=== PATIENT | female | born 1995 | race African-American/Black ===

== ENCOUNTER 2017-12-03 15:05 | Emergency (ER) | payer OTHER, MEDICAID ==
[2017-12-03 16:21] LABS: CONTROL LINE UCG INT CTR LINE PRESENT; URINE PREG TEST NEGATIVE (NEGATIVE)
[2017-12-03 16:24] LABS: KETONE, URINE AUTO RFX NEGATIVE (NEGATIVE); MUCUS, URINE RFX SMALL (NEGATIVE); NITRITE, URINE AUTO RFX NEGATIVE (NEGATIVE); RBC, URINE AUTO RFX 3 /HPF (0-3); SPECIFIC GRAVITY UR AUTO RFX 1.011 (1.002-1.035); SQUAM EPITHELIAL CELL UR AURFX 0 /HPF (0-6)
[2017-12-03 16:27] LABS: LEUKOCYTE ESTERASE UR AUTO RFX 3+ (NEGATIVE); WBC, URINE AUTO RFX 94 /HPF (0-3)
== END 2017-12-03 16:53 | disposition home or self-care (01) ==
LOC: M ED 15:05
DX: N39.0 Urinary tract infection, site not specified (principal)
CPT/HCPCS: 84703

== ENCOUNTER 2018-03-04 08:03 | Emergency (ER) | payer OTHER, MEDICAID ==
[2018-03-04 09:56] LABS: KETONE, URINE AUTO RFX NEGATIVE (NEGATIVE); LEUKOCYTE ESTERASE UR AUTO RFX NEGATIVE (NEGATIVE); MUCUS, URINE RFX SMALL (NEGATIVE); NITRITE, URINE AUTO RFX NEGATIVE (NEGATIVE); RBC, URINE AUTO RFX 2 /HPF (0-3); SPECIFIC GRAVITY UR AUTO RFX 1.012 (1.002-1.035); SQUAM EPITHELIAL CELL UR AURFX 0 /HPF (0-6); WBC, URINE AUTO RFX 1 /HPF (0-3)
[2018-03-04 11:34] LABS: CHLAMYDIA DNA AMPLIFICATION NEGATIVE (NEGATIVE); GC DNA AMPLIFICATION NEGATIVE (NEGATIVE)
== END 2018-03-04 11:02 | disposition home or self-care (01) ==
LOC: M ED 08:03
DX: R10.2 Pelvic and perineal pain (principal); N89.8 Other specified noninflammatory disorders of vagina; Z97.5 Presence of (intrauterine) contraceptive device
CPT/HCPCS: 76856

== ENCOUNTER → 2018-07-09 | Outpatient (CLI) | payer OTHER, MEDICAID ==
[~2018-07-09] MED LIST: CIPR-249 PO
[2018-07-09 15:05] LABS: BASO % 0.5 % (0.0-1.0); EOS # 0.1 10^3/uL (0.0-0.50); EOS % 1.7 % (0.0-3.0); HEMATOCRIT 38.5 % (36.0-47.0); HEMOGLOBIN 13.6 g/dl (12.0-15.5); LYMPH # 2.5 10^3/uL (1.5-6.5); LYMPH % 38.9 % (24.0-44.0); MEAN CORPUSCULAR HEMOGLOBIN 31.4 pg (27.0-33.0); MEAN CORPUSCULAR HGB CONC 35.3 g/dl (32.0-36.5); MEAN CORPUSCULAR VOLUME 88.9 fl (80.0-96.0); MONO # 0.6 10^3/uL (0.0-0.8); MONO % 8.8 % (0.0-5.0); NEUTROPHILS # 3.2 10^3/uL (1.8-7.7); NEUTROPHILS % 49.9 % (36.0-66.0); PLATELET COUNT, AUTOMATED 222 10^3/uL (150-450); RED BLOOD COUNT 4.33 10^6/uL (4.00-5.40); WHITE BLOOD COUNT 6.4 10^3/uL (4.0-10.0)
[2018-07-09 15:08] LABS: APPEARANCE, URINE CLEAR (CLEAR); BACTERIA, URINE AUTO NEGATIVE (NEGATIVE); BILIRUBIN, URINE AUTO NEGATIVE (NEGATIVE); BLOOD, URINE BLOOD NEGATIVE (NEGATIVE); COLOR, URINE STRAW (YELLOW); GLUCOSE, URINE (UA) AUTO NEGATIVE (NEGATIVE); KETONE, URINE AUTO NEGATIVE (NEGATIVE); LEUKOCYTE ESTERASE, URINE AUTO NEGATIVE (NEGATIVE); NITRITE, URINE AUTO NEGATIVE (NEGATIVE); PROTEIN, URINE AUTO NEGATIVE (NEGATIVE); RBC, URINE AUTO 1 /HPF (0-3); SPECIFIC GRAVITY URINE AUTO 1.011 (1.002-1.035); SQUAMOUS EPITHELIAL CELL UR AU 1 /HPF (0-6); UROBILINOGEN, URINE AUTO 0.2 mg/dL (0.0-2.0); WBC, URINE AUTO 2 /HPF (0-3)
[2018-07-09 15:23] LABS: INR 0.97
[2018-07-09 15:24] LABS: PARTIAL THROMBOPLASTIN TIME 27.2 SECONDS (25.4-37.6)
[2018-07-09 15:41] LABS: ALBUMIN 3.6 GM/DL (3.2-5.2); ALT/SGPT 19 U/L (12-78); BILIRUBIN,TOTAL 0.5 MG/DL (0.2-1.0); BLOOD UREA NITROGEN 9 MG/DL (7-18); CALCIUM LEVEL 8.9 MG/DL (8.5-10.1); CARBON DIOXIDE LEVEL 25 MEQ/L (21-32); CHLORIDE LEVEL 109 MEQ/L (98-107); CREATININE FOR GFR 0.59 MG/DL (0.55-1.30); GLOMERULAR FILTRATION RATE > 60.0 (>60); GLUCOSE, FASTING 92 MG/DL (70-100); POTASSIUM SERUM 4.1 MEQ/L (3.5-5.1); SODIUM LEVEL 141 MEQ/L (136-145)
[2018-07-10 10:06] LABS: HIV 1&2 SCREEN CENTAUR NEGATIVE (NEGATIVE)
== END ==
LOC: M LAB 09:45
DX: Z01.812 Encounter for preprocedural laboratory examination (principal)

== ENCOUNTER → 2018-07-09 | Outpatient (REF) | payer OTHER, MEDICAID ==
[2018-07-09 16:05] LABS: HEMATOCRIT 37.8 % (36.0-47.0); HEMOGLOBIN 13.4 g/dl (12.0-15.5); MEAN CORPUSCULAR HEMOGLOBIN 30.8 pg (27.0-33.0); MEAN CORPUSCULAR HGB CONC 35.4 g/dl (32.0-36.5); MEAN CORPUSCULAR VOLUME 86.9 fl (80.0-96.0); PLATELET COUNT, AUTOMATED 229 10^3/uL (150-450); RED BLOOD COUNT 4.35 10^6/uL (4.00-5.40); WHITE BLOOD COUNT 6.9 10^3/uL (4.0-10.0)
[2018-07-09 16:45] LABS: ALBUMIN 3.6 GM/DL (3.2-5.2); ALT/SGPT 20 U/L (12-78); BILIRUBIN,TOTAL 0.4 MG/DL (0.2-1.0); BLOOD UREA NITROGEN 10 MG/DL (7-18); CALCIUM LEVEL 8.8 MG/DL (8.5-10.1); CARBON DIOXIDE LEVEL 26 MEQ/L (21-32); CHLORIDE LEVEL 108 MEQ/L (98-107); CREATININE FOR GFR 0.64 MG/DL (0.55-1.30); FREE T4 1.08 NG/DL (0.76-1.46); GLOMERULAR FILTRATION RATE > 60.0 (>60); GLUCOSE, FASTING 75 MG/DL (70-100); POTASSIUM SERUM 4.2 MEQ/L (3.5-5.1); SODIUM LEVEL 141 MEQ/L (136-145); THYROID STIMULATING HORMONE 0.763 uIU/ML (0.358-3.740)
[2018-07-10 10:07] LABS: HEPATITIS C VIRUS ABY INDEX < 0.0 INDEX (<0.8)
[2018-07-10 10:08] LABS: HIV 1&2 SCREEN CENTAUR NEGATIVE (NEGATIVE)
== END ==
LOC: M SFHCPLAZ 13:53
PROVIDERS: ATTEND Physician Assistant
DX: Z00.00 Encounter for general adult medical examination without abnormal findings (principal); Z11.59 Encounter for screening for other viral diseases; Z11.4 Encounter for screening for human immunodeficiency virus [HIV]

== ENCOUNTER 2018-12-14 22:08 | Emergency (ER) | payer MEDICAID, OTHER ==
[~2018-12-14] VITALS: Ht 170.2 cm; Wt 90.9 kg
[2018-12-14 22:08] VITALS: BP 125/65
== END 2018-12-15 00:55 | disposition left against medical advice (07) ==
LOC: M ED 22:08
DX: R10.2 Pelvic and perineal pain (principal); N89.8 Other specified noninflammatory disorders of vagina; Z53.21 Procedure and treatment not carried out due to patient leaving prior to being seen by health care provider

== ENCOUNTER 2019-01-25 10:03 | Emergency (ER) | payer OTHER ==
[~2019-01-25] VITALS: Ht 172.7 cm; Wt 97.7 kg
[2019-01-25 11:43] LABS: BASO % 0.3 % (0.0-1.0); EOS # 0.1 10^3/uL (0.0-0.5); EOS % 1.1 % (0.0-3.0); HEMATOCRIT 40.7 % (36.0-47.0); HEMOGLOBIN 13.9 g/dl (12.0-15.5); LYMPH # 1.5 10^3/uL (1.5-5.0); LYMPH % 23.8 % (24.0-44.0); MEAN CORPUSCULAR HEMOGLOBIN 31.1 pg (27.0-33.0); MEAN CORPUSCULAR HGB CONC 34.2 g/dl (32.0-36.5); MEAN CORPUSCULAR VOLUME 91.1 fl (80.0-96.0); MONO # 0.5 10^3/uL (0.0-0.8); MONO % 7.8 % (0.0-5.0); NEUTROPHILS # 4.2 10^3/uL (1.5-8.5); NEUTROPHILS % 66.8 % (36.0-66.0); PLATELET COUNT, AUTOMATED 247 10^3/uL (150-450); RED BLOOD COUNT 4.47 10^6/uL (4.00-5.40); WHITE BLOOD COUNT 6.3 10^3/uL (4.0-10.0)
[2019-01-25 12:14] LABS: BLOOD UREA NITROGEN 13 MG/DL (7-18); CALCIUM LEVEL 8.9 MG/DL (8.5-10.1); CARBON DIOXIDE LEVEL 30 MEQ/L (21-32); CHLORIDE LEVEL 105 MEQ/L (98-107); CREATININE FOR GFR 0.66 MG/DL (0.55-1.30); GLOMERULAR FILTRATION RATE > 60.0 (>60); GLUCOSE, FASTING 77 MG/DL (70-100); POTASSIUM SERUM 4.5 MEQ/L (3.5-5.1); SODIUM LEVEL 141 MEQ/L (136-145)
--- NOTE | 2019-01-25 13:13 | REP ---
PELVIC ULTRASOUND: Real-time sonographic evaluation of the pelvis performed utilizing transabdominal and endovaginal technique. Urinary bladder is collapsed. Uterus measures 7.1 x 4.5 x 5.0 cm. Endometrial thickness is 11 mm. IUD is in place within the endometrial canal. In the fundal portion of the endometrium soft tissue structure measures 9 x 9 x 18 mm representing either blood clot or polyp. Ovaries are normal in size and echotexture, right ovary measuring 2.7 x 1.9 x 2.2 cm and left ovary 3.4 x 1.8 x 2.3 cm. There is no adnexal mass. There is no torsion, RI right ovary 0.53 and left ovary 0.55. IMPRESSION: IUD in place in the endometrial canal. Solid appearing structure in the fundal endometrium measures 9 x 9 x 18 mm representing either blood clot or polyp. Electronically Signed by Serg Franco MD 01/25/2019 04:19 P
[2019-01-25 13:21] LABS: CHLAMYDIA DNA AMPLIFICATION NEGATIVE (NEGATIVE); GC DNA AMPLIFICATION NEGATIVE (NEGATIVE)
[2019-01-25] MEDS ORDERED: FLAG500T PO (13:34)
[2019-01-25 13:41] VITALS: BP 119/75
== END 2019-01-25 13:49 | disposition home or self-care (01) ==
LOC: M ED 10:03
DX: N76.0 Acute vaginitis (principal); Z97.5 Presence of (intrauterine) contraceptive device

== ENCOUNTER 2019-02-27 07:51 | Emergency (ER) | payer OTHER, MEDICAID ==
[~2019-02-27] VITALS: Ht 172.7 cm; Wt 100.7 kg
[~2019-02-27 07:51] MED LIST changes: +FLAG500T PO
[2019-02-27] MEDS ORDERED: KETOROLAC 60 MG/2 ML VIAL (J1885) IM ONE (08:15)
[2019-02-27] MEDS ORDERED: ACETAMINOPHEN 325 MG TAB PO ONE (08:15)
[2019-02-27] MEDS ORDERED: KETO10TAB PO (09:25)
[2019-02-27] MEDS ORDERED: GABA-1171 PO (09:25)
[2019-02-27] MEDS ORDERED: PENI500T PO (09:28)
[2019-02-27 09:33] VITALS: BP 143/77
== END 2019-02-27 09:45 | disposition home or self-care (01) ==
LOC: M ED 07:51
DX: K02.9 Dental caries, unspecified (principal)
CPT/HCPCS: 99283; J1885

== ENCOUNTER 2019-05-13 13:32 | Emergency (ER) | payer OTHER, MEDICAID ==
[~2019-05-13] VITALS: Ht 172.7 cm; Wt 102.9 kg
[~2019-05-13 13:32] MED LIST changes: +GABA-1171 PO; +KETO10TAB PO; +PENI500T PO
[2019-05-13 15:01] LABS: BASO % 0.2 % (0.0-1.0); EOS % 0.9 % (0.0-3.0); HEMATOCRIT 43.8 % (36.0-47.0); HEMOGLOBIN 14.5 g/dl (12.0-15.5); LYMPH # 1.7 10^3/uL (1.5-5.0); LYMPH % 38.6 % (24.0-44.0); MEAN CORPUSCULAR HEMOGLOBIN 30.3 pg (27.0-33.0); MEAN CORPUSCULAR HGB CONC 33.1 g/dl (32.0-36.5); MEAN CORPUSCULAR VOLUME 91.4 fl (80.0-96.0); MONO # 0.5 10^3/uL (0.0-0.8); MONO % 10.5 % (0.0-5.0); NEUTROPHILS # 2.1 10^3/uL (1.5-8.5); NEUTROPHILS % 49.6 % (36.0-66.0); PLATELET COUNT, AUTOMATED 235 10^3/uL (150-450); RED BLOOD COUNT 4.79 10^6/uL (4.00-5.40); WHITE BLOOD COUNT 4.3 10^3/uL (4.0-10.0)
[2019-05-13 15:24] LABS: ALBUMIN 3.5 GM/DL (3.2-5.2); ALT/SGPT 14 U/L (12-78); BILIRUBIN,DIRECT 0.1 MG/DL (0.0-0.2); BILIRUBIN,TOTAL 0.3 MG/DL (0.2-1.0); BLOOD UREA NITROGEN 11 MG/DL (7-18); CARBON DIOXIDE LEVEL 27 MEQ/L (21-32); CHLORIDE LEVEL 108 MEQ/L (98-107); CREATININE FOR GFR 0.75 MG/DL (0.55-1.30); GLOMERULAR FILTRATION RATE > 60.0 (>60); GLUCOSE, FASTING 88 MG/DL (70-100); LIPASE 74 U/L (73-393); SODIUM LEVEL 140 MEQ/L (136-145); TOTAL PROTEIN 7.5 GM/DL (6.4-8.2)
[2019-05-13 15:30] LABS: HCG, SERUM QUALITATIVE NEGATIVE (NEGATIVE)
[2019-05-13] MEDS ORDERED: ONDANSETRON 4 MG ORAL DISINTEGRATING TAB (Q0162 PER 1MG) PO ONE (17:15)
[2019-05-13] MEDS ORDERED: COLA100C5 PO (18:51)
[2019-05-13] MEDS ORDERED: NAPR-837 PO (18:51)
[2019-05-13 19:00] VITALS: BP 113/70
--- NOTE | 2019-05-13 19:19 | REPVR ---
PROCEDURE INFORMATION: Exam: US Pelvis Complete, Transabdominal Exam date and time: 05/13/2019 6:18 PM Age: 24 years old Clinical indication: Pelvic pain; Additional info: Right sided abd pain TECHNIQUE: Imaging protocol: Real-time transabdominal pelvic ultrasound with image documentation. Complete exam. COMPARISON: US PELVIC NON-OB COMPLETE 01/25/2019 11:58 AM FINDINGS: Uterus/cervix: The uterus is retroverted and measures 6.3 cm in length by 4.6 cm in AP dimension by 4.6 cm transverse dimension. There is an IUD within the central portion of the endometrial cavity. There is a small amount of fluid within the endometrial cavity surrounding the IUD. Right adnexa: The right ovary measures 3.2 cm in length by 2 cm in thickness. There are follicular cysts of the right ovary. There is vascular flow of the right ovary with no evidence of torsion. Left adnexa: The left ovary measures 2.7 cm in length by 1.8 cm in thickness and there are small follicular cysts identified. There is vascular flow with no evidence of torsion. Free fluid: There is a small amount of free fluid in the pelvis. Bladder: Normal appearing urinary bladder IMPRESSION: 1. Retroverted uterus with an IUD in the endometrial cavity along with a small amount of endometrial fluid. 2. Small follicular cysts along the periphery of the ovaries could be mild polycystic ovary. Electronically signed by: Fernandez Wesley On 05/13/2019 19:18:42 PM
--- NOTE | 2019-05-13 19:27 | REPVR ---
PROCEDURE INFORMATION: Exam: US Abdomen Limited, Right Upper Quadrant Exam date and time: 05/13/2019 6:18 PM Age: 24 years old Clinical indication: Abdominal pain; Generalized; Additional info: Right sided abd pain TECHNIQUE: Imaging protocol: Real-time ultrasound of the abdomen with image documentation. Examination was focused on the right upper quadrant. COMPARISON: No relevant prior studies available. FINDINGS: Liver: Normal appearing liver. Gallbladder: The gallbladder is fluid filled and there is no evidence of gallstones. There is a fold in the neck of the gallbladder. There is no evidence of gallstones. Common bile duct: Common bile duct is normal in size measuring 3 mm. Pancreas: Normal appearing pancreas. Right kidney: The right kidney measures 12.6 cm in length by 4 cm in thickness and there is no hydronephrosis. Aorta: Normal appearing aorta. Inferior vena cava: Normal appearing inferior vena cava. IMPRESSION: No evidence of gallstones and no evidence of biliary dilatation. Electronically signed by: Fernandez Wesley On 05/13/2019 19:27:15 PM
== END 2019-05-13 19:02 | disposition home or self-care (01) ==
LOC: M ED 13:32
DX: R10.9 Unspecified abdominal pain (principal); Z97.5 Presence of (intrauterine) contraceptive device

== ENCOUNTER 2019-07-22 10:29 | Emergency (ER) | payer OTHER, MEDICAID ==
[~2019-07-22] VITALS: Ht 172.7 cm; Wt 101.9 kg
[~2019-07-22 10:29] MED LIST changes: +COLA100C5 PO; +NAPR-837 PO
[2019-07-22 11:59] LABS: INFLUENZA A AMPLIFICATION NEGATIVE (NEGATIVE); INFLUENZA B AMPLIFICATION NEGATIVE (NEGATIVE)
[2019-07-22] MEDS ORDERED: AFRI0.058 (12:41)
[2019-07-22] MEDS ORDERED: BENZ200C70 PO (12:41)
[2019-07-22 12:59] VITALS: BP 134/63
== END 2019-07-22 13:02 | disposition home or self-care (01) ==
LOC: M ED 10:29
DX: J06.9 Acute upper respiratory infection, unspecified (principal); R05 Cough

== ENCOUNTER 2019-09-06 10:08 | Inpatient (IN) | payer OTHER ==
[~2019-09-06] VITALS: Ht 172.7 cm; Wt 101.9 kg
[~2019-09-06 10:08] MED LIST changes: +AFRI0.058; +BENZ200C70 PO
[2019-09-06] MEDS ORDERED: MELA2.5C3 PO (10:33)
[2019-09-06 11:03] LABS: HEMATOCRIT 40.1 % (36.0-47.0); HEMOGLOBIN 13.8 g/dl (12.0-15.5); MEAN CORPUSCULAR HEMOGLOBIN 30.7 pg (27.0-33.0); MEAN CORPUSCULAR HGB CONC 34.4 g/dl (32.0-36.5); MEAN CORPUSCULAR VOLUME 89.1 fl (80.0-96.0); PLATELET COUNT, AUTOMATED 227 10^3/uL (150-450); WHITE BLOOD COUNT 5.1 10^3/uL (4.0-10.0)
[2019-09-06 11:29] LABS: AMPHETAMINES LEVEL URINE NEGATIVE (NEGATIVE); BARBITURATES URINE NEGATIVE (NEGATIVE); BENZODIAZEPINES URINE NEGATIVE (NEGATIVE); CANNABINOIDS URINE POSITIVE (NEGATIVE); COCAINE METABOLITE URINE NEGATIVE (NEGATIVE); METHADONE URINE NEGATIVE (NEGATIVE); OPIATES URINE NEGATIVE (NEGATIVE); PHENCYCLIDINE URINE NEGATIVE (NEGATIVE)
[2019-09-06 11:49] LABS: HCG, SERUM QUALITATIVE NEGATIVE (NEGATIVE)
[2019-09-06 11:57] LABS: ACETAMINOPHEN LEVEL < 2.0 UG/ML (10.0-30.0); ALBUMIN 3.5 GM/DL (3.2-5.2); ALT/SGPT 15 U/L (12-78); BILIRUBIN,DIRECT 0.1 MG/DL (0.0-0.2); BILIRUBIN,TOTAL 0.5 MG/DL (0.2-1.0); BLOOD UREA NITROGEN 11 MG/DL (7-18); CALCIUM LEVEL 8.9 MG/DL (8.5-10.1); CARBON DIOXIDE LEVEL 28 MEQ/L (21-32); CHLORIDE LEVEL 106 MEQ/L (98-107); CREATININE FOR GFR 0.78 MG/DL (0.55-1.30); ETHYL ALCOHOL (ETHANOL) < 0.003 % (0.000-0.010); GLOMERULAR FILTRATION RATE > 60.0 (>60); GLUCOSE, FASTING 97 MG/DL (70-100); POTASSIUM SERUM 4.3 MEQ/L (3.5-5.1); SALICYLATE LEVEL 2.5 MG/DL (5.0-30.0); SODIUM LEVEL 139 MEQ/L (136-145); THYROID STIMULATING HORMONE 0.474 uIU/ML (0.358-3.740); TOTAL PROTEIN 7.1 GM/DL (6.4-8.2)
[2019-09-06] MEDS ORDERED: NEXP1IMP SC (12:43)
[2019-09-06] MEDS ORDERED: MAALOX 30 ML SUSP *UDC PO PRN (15:15)
[2019-09-06] MEDS ORDERED: traZODone 50 MG TAB PO PRN (15:15)
[2019-09-06] MEDS ORDERED: MOM 30ML SUSPENSION UDC PO PRN (15:15)
[2019-09-06 16:51] VITALS: BP 123/62
[2019-09-07 06:03] VITALS: BP 122/71
--- NOTE | 2019-09-07 09:43 | MHHPEPDOC ---
[facility] History & Physical History and Physical DATE OF ADMISSION: Sep 06, 2019 at 15:13 LEGAL STATUS AT ADMISSION: . CHIEF COMPLAINT: . HISTORY OF PRESENT ILLNESS: Patient is a 24-year-old female, who PSYCHIATRIC REVIEW OF SYSTEMS: Affective: . Anxiety: . Trauma: . Psychosis: . Personality: . PAST PSYCHIATRIC HISTORY: Prior Psychiatric Disorder: . Outpatient Treatment: . Suicidal/Self injurious: [Denies]. Psychotropic Medication History: . ALLERGIES: Please see below. FAMILY PSYCHIATRIC HISTORY: [Denies]. SOCIAL HISTORY: Early Relations/development: . Sibling order: . Paternal relationships: . Education: . Occupational: . Legal: . Marital: . Economic: . Supports: . Abuse/trauma: . SUBSTANCE ABUSE HISTORY: . PAST MEDICAL/SURGICAL HISTORY: [None]. VITAL SIGNS: Please see below. MENTAL STATUS EXAMINATION: General appearance: Patient is a -year old female, who is . Speech: . Thought processes: . Thought content: . Abstract reasoning and computation: . Description of associations: . Description of abnormal or psychotic thoughts: . Judgment: . Insight: . Orientation: . Recent and remote memory: . Attention span and concentration: . Fund of knowledge: . Mood: "." Affect: . DIAGNOSES: 1. . 2. . 3. . ASSESSMENT: PROBLEM LIST: 1. . 2. . 3. . INITIAL TREATMENT PLAN: 1. Patient was admitted on a . 2. Complete history was obtained. 3. With patients permission, family will be contacted and database will be expanded. 4. Patients medication regimen will be reviewed and changed accordingly. 5. Patient will be provided with protected environment. 6. Patient will be treated with individual, group, and milieu therapies. 7. Patient will receive supportive psych-education. 8. Discharge planning will commence immediately. 9. Outpatient follow-up treatment will be strongly recommended. 10. The initial treatment plan will focus initially on: * Depression. * Risk for suicide. * Substance abuse. ESTIMATED LENGTH OF STAY: - DAYS. TIME SPENT COUNSELING AND COORDINATING INITIAL CARE: minutes. Vital Signs Vital Signs Date Time Temp Pulse Resp B/P (MAP) Pulse Ox O2 Delivery O2 Flow Rate FiO2 09/07/19 06:03 99.3 64 16 122/71 (88) 09/06/19 16:51 99 Room Air Laboratory Data 24H Labs Laboratory Tests 2 09/06/19 10:49: Nucleated Red Blood Cells % (auto) 0.0, Anion Gap 5L, Glomerular Filtration Rate > 60.0, Calcium Level 8.9, Total Bilirubin 0.5, Direct Bilirubin 0.1, Aspartate Amino Transf (AST/SGOT) 12, Alanine Aminotransferase (ALT/SGPT) 15, Alkaline Phosphatase 64, Total Protein 7.1, Albumin 3.5, Albumin/Globulin Ratio 0.97L, Thyroid Stimulating Hormone (TSH) 0.474, Human Chorionic Gonadotropin, Qual NEGATIVE, Salicylates Level 2.5L, Acetaminophen Level < 2.0L, Ethyl Alcohol Level < 0.003 09/06/19 10:51: Urine Opiates Screen NEGATIVE, Urine Methadone Screen NEGATIVE, Urine Barbiturates Screen NEGATIVE, Urine Phencyclidine Screen NEGATIVE, Urine Amphetamines Screen NEGATIVE, Urine Benzodiazepines Screen NEGATIVE, Urine Cocaine Metabolite Screen NEGATIVE, Urine Cannabinoids Screen POSITIVEH CBC/BMP Laboratory Tests 09/06/19 10:49 Medications Scheduled Etonogestrel (Nexplanon) 68 Mg Implant, 68 MG SC ASDIRECTED, (Reported) Scheduled PRN Melatonin (Melatonin) 2.5 Mg Tab.chew, 5 MG PO QHSP PRN for INSOMNIA, (Reported) Allergies Coded Allergies: No Known Allergies (Unverified , 12/03/17) TRISTAN MCCLURE DO Sep 07, 2019 09:43
[2019-09-07] MEDS ORDERED: hydrOXYzine 25 MG TAB PO PRN (12:30)
[2019-09-07] MEDS: SERTRALINE HCL 50 MG TAB PO SCH (12:40)
--- NOTE | 2019-09-07 16:39 | HPEPDOC ---
General Date of Admission Sep 06, 2019 at 15:13 Date of Service: Sep 07, 2019 Chief Complaint The patient is a 24-year-old female admitted with a reason for visit of Unspecified Depressive Disorder. Source: Patient Exam Limitations: No limitations Timing/Duration: Day(s) Severity: Moderate History of Present Illness Patient is 24 years old female w/o significant past medical history, who was admitted in the hospital with suicidal ideation. She denied any cardiovascular problem, breathing problem, GI problem or dysuria. He denies fever, chills, nausea, vomiting, shortness of breath, palpitations, diarrhea or dysuria Home Medications Scheduled Etonogestrel (Nexplanon) 68 Mg Implant, 68 MG SC ASDIRECTED, (Reported) Scheduled PRN Melatonin (Melatonin) 2.5 Mg Tab.chew, 5 MG PO QHSP PRN for INSOMNIA, (Reported) Allergies Coded Allergies: No Known Allergies (Unverified , 12/03/17) Past Medical History Surgical History 2 C-sections and tonsillectomy Family History Father has diabetes Mother has bipolar Social History * Smoker: former Smoker Alcohol: Denies Drugs: marijuana A-FIB/CHADSVASC A-FIB History Current/History of A-Fib/PAF?: No Current PO Anticoag Therapy: No Review of Systems Constitutional: Denies: Chills, Fever Eyes: Denies: Pain ENT: Denies: Head Aches Skin: Denies: Rash, Lesions Pulmonary: Denies: Dyspnea, Cough Cardiovascular: Denies: Chest Pain Gastrointestinal: Denies: Nausea Genitourinary: Denies: Dysuria, Frequency Hematologic: Denies: Bruising Endocrine: Denies: Polydipsia Musculoskeletal: Denies: Neck Pain Neurological: Denies: Weakness Psych: Reports: Depression Physical Examination General Exam: Positive: Alert, Cooperative Eye Exam: Positive: PERRLA ENT Exam: Positive: Atraumatic Neck Exam: Positive: Supple; Negative: JVD Chest Exam: Positive: Clear to auscultation Heart Exam: Positive: Rate Normal Telemetry: Positive: No significant arrhythmia Abdomen Exam: Positive: Normal bowel sounds Extremity Exam: Positive: Clubbing Skin Exam: Positive: Nl turgor and temperature Neuro Exam: Positive: Normal Gait Psych Exam: Positive: Oriented x 3 Vital Signs Vital Signs Date Time Temp Pulse Resp B/P (MAP) Pulse Ox O2 Delivery O2 Flow Rate FiO2 09/07/19 06:03 99.3 64 16 122/71 (88) 09/06/19 16:51 99 Room Air Assessment/Plan Patient is 24 years old female w/o significant past medical history, who was admitted in the hospital with suicidal ideation. She denied any cardiovascular problem, breathing problem, GI problem or dysuria. He denies fever, chills, nausea, vomiting, shortness of breath, palpitations, diarrhea or dysuria Problems (1) Depression with suicidal ideation Status: Acute Problem Text: Therapy per psych team Plan / VTE VTE Prophylaxis Ordered?: No VTE Exclusion Pharmacological: At Low Risk for VTE LAI MICHEL DO Sep 07, 2019 16:39
[2019-09-07 17:16] VITALS: BP 132/72
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
[2019-09-07] MEDS: PRAZOSIN 1 MG CAP PO SCH (20:44)
[2019-09-07] MEDS: IBUPROFEN 400 MG TAB PO PRN (20:44)
[2019-09-07] MEDS: QUEtiapine FUMARATE 50 MG TAB PO SCH (20:44)
[2019-09-08 06:07] VITALS: BP 137/60
[2019-09-08] MEDS: SERTRALINE HCL 50 MG TAB PO SCH (08:35)
--- NOTE | 2019-09-08 09:23 | ECGEPIP ---
[facility] Test Date: 2019-09-07 Pat Name: JERAMIE SCHAFFER Department: Room: [place] [address] Gender: Female Telemarketing Sales Representative: GURU : 1995 Requested By: LAURA GOLDSMITH Order Number: [id number] Reading MD: Prabhjot Lou Measurements Intervals [place] Rate: 66 P: 63 MI: 164 QRS: 69 QRSD: 92 T: 56 QT: 366 QTc: 385 Interpretive Statements Normal sinus rhythm with sinus arrhythmia Early repolarization Comparison tracing not on file Electronically Signed on 09-08-2019 9:23:19 EDT by Prabhjot Lou
--- NOTE | 2019-09-08 16:13 | MHIPNPDOC ---
[facility] Progress Note Progress Note DATE OF SERVICE: 09/08/19 Chief Complaint Inpatient follow-up on second day of hospitalization. History of Present Illness María Quarles is a 24-year-old woman who presented with worsening depression, anxiety, and PTSD symptoms in the setting of relational loss. She was admitted due to suicidal ideation and a lack of outpatient follow-up. She is under a voluntary legal status. She was restarted on past psychotropics of sertraline an d quetiapine. She was also started on 2 new psychotropics, prazosin for nightmares and hydroxyzine as needed for anxiety. On evaluation, María reports significant improvement in mood as well as PTSD symptoms. She denies current SI. She reports tolerating the medications well. She initially had a headache and upset stomach as well as some diaphoresis after taking yesterday's dose of sertraline. However, she reports that these side effects have subsided. She states that it took a little longer than usual to fall asleep while on quetiapine. She denied experiencing any nightmares last night or flashbacks today. Review of Systems Constitutional: Negative. Cardiovascular: Negative. Gastrointestinal: GI upset subsided. Neurological: Headaches subsided. Psychiatric: Reports improvement in mood, denies SI, nightmares or flashbacks. Past History Self, family and social history reviewed. No change in all areas. Physical Exam Vitals: see below General appearance: appears stated aged with good hygiene and grooming; dressed in seasonally-appropriate attire MSK: Normal Speech: WNL for rate, volume, fluencey, and amount Thought process (logical vs. illogical or disorganized): logical Associations: intact Thought content: No SI/HI/AVH/delusional thinking elicited Description of patient's judgement and insight: fair Mood and affect: mood is "better", affect is euthymic Data Medical Records/Labs/Diagnostic Tests Reviewed Medical Decision Making María Quarles was admitted after presenting with suicidal ideation and w orsening depression, anxiety, and PTSD symptoms in the setting of relational loss. She also had a lack of outpatient follow-up. She is on voluntary status. María states that she needs another day or so to be stabilized on these medication changes; she is agreeable to a potential discharge either tomorrow or the day after. Diagnoses: 1. Major depressive disorder. 2. PTSD. 3. Unspecified anxiety disorder. Plan: 1. Sertraline 50 mg daily. 2. Quetiapine 50 mg nightly. 3. Prazosin 1 mg nightly. 4. Hydroxyzine 25 mg q.6h. PRN for anxiety. Consultation Time Spent: 20 minutes, with greater than 50% of time spent in counseling/coordination of care. Vital Signs Vital Signs Date Time Temp Pulse Resp B/P (MAP) Pulse Ox O2 Delivery O2 Flow Rate FiO2 09/08/19 06:07 99.3 67 16 137/60 (85) 09/06/19 16:51 99 Room Air Current Medications Current Medications Medications (Trade) Dose Ordered Sig/Rose Mary Route PRN Reason Start Time Stop Time Status Last Admin Dose Admin Al Hydrox/Mg Hydrox/Simethicone (Mylanta) 30 ml Q4HP PRN PO HEARTBURN/INDIGESTION 09/06/19 15:15 Home Med (Med Rec Complete!) ASDIRECTED XX 09/06/19 12:45 09/06/19 12:45 DC Hydroxyzine HCl (Atarax) 25 mg Q6HP PRN PO ANXIETY 09/07/19 12:30 Ibuprofen (Advil) 400 mg Q6HP PRN PO PAIN 09/06/19 15:15 09/07/19 20:44 Magnesium Hydroxide (Milk Of Magnesia) 30 ml DAILYPRN PRN PO CONSTIPATION 09/06/19 15:15 Prazosin HCl (Minipress) 1 mg QHS PO 09/07/19 21:00 09/07/19 20:44 Quetiapine Fumarate (SEROquel) 50 mg QHS PO 09/07/19 21:00 09/07/19 20:44 Sertraline HCl (Zoloft) 50 mg DAILY PO 09/07/19 12:15 09/08/19 08:35 Trazodone HCl (Desyrel) 50 mg QHSP PRN PO INSOMNIA 09/06/19 15:15 09/07/19 12:24 DC 09/06/19 23:08 Allergies Coded Allergies: No Known Allergies (Unverified , 12/03/17) GME ATTESTATION GME ATTESTATION My faculty preceptor for this patient encounter was physically present during the encounter and was fully available. All aspects of the patient interview, examination, medical decision making process, and medical care plan development were reviewed and approved by the faculty preceptor. The faculty preceptor is aware and concurs with the plan as stated in the body of this note and will attest to such by his/her cosignature. LAURA GOLDSMITH MD Sep 08, 2019 16:13
[2019-09-08 16:16] VITALS: BP 126/63
[2019-09-08] MEDS: QUEtiapine FUMARATE 50 MG TAB PO SCH (21:20)
[2019-09-08 21:21] VITALS: BP 140/79
[2019-09-08] MEDS: PRAZOSIN 1 MG CAP PO SCH (21:21)
[2019-09-09 06:00] VITALS: BP 140/75
[2019-09-09] MEDS: SERTRALINE HCL 50 MG TAB PO SCH (08:56)
[2019-09-09] MEDS: IBUPROFEN 400 MG TAB PO PRN (08:57)
[2019-09-09] MEDS ORDERED: SERT50TA29 PO (09:58)
[2019-09-09] MEDS ORDERED: MINI1CAP PO (09:58)
[2019-09-09] MEDS ORDERED: IBUP40TA PO (09:58)
[2019-09-09] MEDS ORDERED: QUET100T2 PO (09:58)
--- NOTE | 2019-09-09 16:13 | MHDSPDOC ---
[facility] Discharge Summary Discharge Summary DATE OF ADMISSION: Sep 06, 2019 at 15:13 DATE OF DISCHARGE: 09/09/19 Discharge Diagnoses Major depressive disorder. PTSD. Unspecified anxiety disorder. History of Present Illness María Quarles is a 24-year-old woman who presents with worsening depression and suicidal ideation in the context of a pending divorce. She and her have undergone marital problems for some time; María had hoped for things to work out, but her has began to move forward with paperwork for the divorce. This stressor has in turn made her vulnerable to chronic symptoms of PTSD, notably nightmares, flashbacks, avoidance behavior, and hypervigilance. She reports 1 prior suicide attempt by overdose when she was a teenager. At this time, she states that she would rather be than alive. Consultants Routine medical screening. Treatment and Progress María was restarted on past home meds of the Zoloft and Seroquel. She reported good effect from these medications despite transient side effects of upset stomach, headache, and diaphoresis. She was also started on prazosin for nightmares, which she reported good effect. Discharge Assessment On the day of discharge, María denied SI/HI/AVH/delusional thinking. She reported improvement in her presenting symptoms and did not have any safety concerns going home. She stated that she felt well enough to resume her treatment as an outpatient. She was to be sent home on a higher dose of Seroquel to further aid and sleep; she was notified of the potential side effects of raising the dose of this medication, notably the same side effects that were discussed in her initial evaluation. Physical Exam Vitals: see below General appearance: appears stated aged with good hygiene and grooming; dressed in seasonally-appropriate attire MSK: Normal Speech: WNL for rate, volume, fluencey, and amount Thought process (logical vs. illogical or disorganized): logical Associations: intact Thought content: No SI/HI/AVH/delusional thinking elicited Description of patient's judgement and insight: fair Mood and affect: mood is "good", affect is euthymic Follow Up Appointments The discharge planners have worked to arrange outpatient follow-up. During the pre-discharge meeting, the patient was evaluated for further issues of lethality in order to address them fully before discharge. They worked on safety planning with the patient's family members to ensure that the patient will have a safe and effective discharge. Time Spent 20 minutes, with greater than 50% of time spent in counseling and coordination of care. Vital Signs/I&Os Vital Signs Date Time Temp Pulse Resp B/P (MAP) Pulse Ox O2 Delivery O2 Flow Rate FiO2 09/09/19 06:00 99.5 66 16 140/75 (96) 100 Room Air Medications Scheduled Etonogestrel (Nexplanon) 68 Mg Implant, 68 MG SC ASDIRECTED, (Reported) Prazosin HCl (Minipress) 1 Mg Capsule, 1 MG PO QHS for nightmares for 7 Days, #7 Quetiapine Fumarate (Quetiapine Fumarate) 100 Mg Tablet, 100 MG PO QPM for sleep and mood for 7 Days, #7 Sertraline HCl (Sertraline HCl) 50 Mg Tablet, 50 MG PO DAILY for mood for 7 Days, #7 Scheduled PRN Ibuprofen (Ibuprofen) 400 Mg Tablet, 400 MG PO Q6HP PRN for PAIN for 7 Days, #28 Melatonin (Melatonin) 2.5 Mg Tab.chew, 5 MG PO QHSP PRN for INSOMNIA, (Reported) Allergies Coded Allergies: No Known Allergies (Unverified , 12/03/17) GME ATTESTATION GME ATTESTATION My faculty preceptor for this patient encounter was physically present during the encounter and was fully available. All aspects of the patient interview, examination, medical decision making process, and medical care plan development were reviewed and approved by the faculty preceptor. The faculty preceptor is aware and concurs with the plan as stated in the body of this note and will attest to such by his/her cosignature. LAURA GOLDSMITH MD Sep 09, 2019 10:01
== END 2019-09-09 13:00 | disposition home or self-care (01) | DRG 881 ==
LOC: M ED 10:08 → M ED INP 15:13 → M PSY 16:50
PROVIDERS: ADMIT Psychiatry & Neurology Addiction Medicine; ATTEND Psychiatry & Neurology Addiction Medicine
DX: F32.9 Major depressive disorder, single episode, unspecified (principal); R45.851 Suicidal ideations; F43.10 Post-traumatic stress disorder, unspecified; F41.9 Anxiety disorder, unspecified; Z62.810 Personal history of physical and sexual abuse in childhood; Z62.811 Personal history of psychological abuse in childhood; Z63.5 Disruption of family by separation and divorce; Z91.5 Personal history of self-harm; Z79.899 Other long term (current) drug therapy; Z87.891 Personal history of nicotine dependence

== ENCOUNTER 2020-02-21 22:42 | Emergency (ER) | payer OTHER ==
[~2020-02-21] VITALS: Ht 172.7 cm; Wt 90.9 kg
[2020-02-21 22:42] VITALS: BP 129/60
[~2020-02-21 22:42] MED LIST changes: +IBUP40TA PO; +MELA2.5C3 PO; +MINI1CAP PO; +NEXP1IMP SC; +QUET100T2 PO; +SERT50TA29 PO
[2020-02-21] MEDS ORDERED: LIDOCAINE VISCOUS 2% SOLN 15ML UDC TOP ONE (23:00)
== END 2020-02-21 23:43 | disposition home or self-care (01) ==
LOC: M ED 22:42
DX: S01.532A Puncture wound without foreign body of oral cavity, initial encounter (principal); W22.8XXA Striking against or struck by other objects, initial encounter; Y92.098 Other place in other non-institutional residence as the place of occurrence of the external cause; F17.200 Nicotine dependence, unspecified, uncomplicated

== ENCOUNTER → 2020-04-13 | Outpatient (REF) | payer OTHER ==
[2020-04-13 15:07] LABS: BASO % 0.5 % (0.0-1.0); EOS # 0.1 10^3/uL (0.0-0.5); HEMATOCRIT 40.3 % (36.0-47.0); HEMOGLOBIN 13.4 g/dl (12.0-15.5); LYMPH # 1.7 10^3/uL (1.5-5.0); LYMPH % 41.5 % (24.0-44.0); MEAN CORPUSCULAR HEMOGLOBIN 29.5 pg (27.0-33.0); MEAN CORPUSCULAR HGB CONC 33.3 g/dl (32.0-36.5); MEAN CORPUSCULAR VOLUME 88.6 fl (80.0-96.0); MONO # 0.4 10^3/uL (0.0-0.8); MONO % 10.7 % (0.0-5.0); NEUTROPHILS # 1.8 10^3/uL (1.5-8.5); NEUTROPHILS % 45.1 % (36.0-66.0); PLATELET COUNT, AUTOMATED 246 10^3/uL (150-450); RED BLOOD COUNT 4.55 10^6/uL (4.00-5.40)
[2020-04-13 17:07] LABS: ALBUMIN 3.4 GM/DL (3.2-5.2); ALT/SGPT 19 U/L (12-78); BILIRUBIN,TOTAL 0.4 MG/DL (0.2-1.0); BLOOD UREA NITROGEN 7 MG/DL (7-18); CALCIUM LEVEL 8.4 MG/DL (8.5-10.1); CARBON DIOXIDE LEVEL 26 MEQ/L (21-32); CHLORIDE LEVEL 112 MEQ/L (98-107); CHOLESTEROL LEVEL 127 MG/DL (<200); CHOLESTEROL RISK RATIO 3.342 (<5); CREATININE FOR GFR 0.66 MG/DL (0.55-1.30); GLOMERULAR FILTRATION RATE > 60.0 (>60); GLUCOSE, FASTING 94 MG/DL (70-100); HDL CHOLESTEROL 38 MG/DL (>40); LDL CHOLESTEROL 69 MG/DL (<100); NON-HDL-C 89 MG/DL; POTASSIUM SERUM 4.4 MEQ/L (3.5-5.1); SODIUM LEVEL 141 MEQ/L (136-145); TOTAL PROTEIN 6.7 GM/DL (6.4-8.2); TRIGLYCERIDES LEVEL 98 MG/DL (<150)
[2020-04-13 17:11] LABS: TOTAL 25(OH) VITAMIN D 10.6 NG/ML (30.0-100.0)
[2020-04-13 17:23] LABS: HEPATITIS B SURFACE ANTIGEN NEGATIVE (NEGATIVE)
[2020-04-13 17:49] LABS: HEPATITIS C VIRUS ABY INDEX < 0.0 INDEX (<0.8)
[2020-04-13 17:50] LABS: HEPATITIS B CORE ANTIBODY IGM NEGATIVE (NEGATIVE)
[2020-04-13 17:52] LABS: HIV 1&2 SCREEN CENTAUR NEGATIVE (NEGATIVE)
[2020-04-13 17:53] LABS: HEPATITIS A ANTIBODY IGM NEGATIVE (NEGATIVE)
[2020-04-13 20:11] LABS: HEMOGLOBIN A1c 5.5 %
== END ==
LOC: M LAB REF 12:39
PROVIDERS: ATTEND Nurse Practitioner Family
DX: E66.9 Obesity, unspecified (principal); F17.200 Nicotine dependence, unspecified, uncomplicated

== ENCOUNTER 2020-05-06 14:45 | Emergency (ER) | payer OTHER ==
[~2020-05-06] VITALS: Ht 172.7 cm; Wt 100.0 kg
[2020-05-06 16:29] LABS: BASO % 0.2 % (0.0-1.0); HEMATOCRIT 40.1 % (36.0-47.0); HEMOGLOBIN 13.5 g/dl (12.0-15.5); LYMPH % 9.6 % (24.0-44.0); MEAN CORPUSCULAR HEMOGLOBIN 29.2 pg (27.0-33.0); MEAN CORPUSCULAR HGB CONC 33.7 g/dl (32.0-36.5); MEAN CORPUSCULAR VOLUME 86.6 fl (80.0-96.0); MONO # 0.9 10^3/uL (0.0-0.8); MONO % 8.6 % (0.0-5.0); NEUTROPHILS # 8.1 10^3/uL (1.5-8.5); NEUTROPHILS % 81.2 % (36.0-66.0); PLATELET COUNT, AUTOMATED 230 10^3/uL (150-450); RED BLOOD COUNT 4.63 10^6/uL (4.00-5.40)
[2020-05-06] MEDS ORDERED: dexameTHASONE 20MG/5ML VIAL (J1100 PER 1MG) IV ONE (16:45)
[2020-05-06] MEDS ORDERED: KETOROLAC 30 MG/ML 1ML VIAL IV ONE (16:45)
[2020-05-06 17:01] LABS: MONO SCRN NEGATIVE (NEGATIVE)
[2020-05-06 17:09] LABS: FREE T4 1.28 NG/DL (0.76-1.46); THYROID STIMULATING HORMONE 0.502 uIU/ML (0.358-3.740)
[2020-05-06] MEDS ORDERED: ISOVUE-370 76% 100ML VIAL As Ordered ONE (17:33)
--- NOTE | 2020-05-06 18:22 | REPVR ---
PROCEDURE INFORMATION: Exam: CT Neck With Contrast Exam date and time: 05/06/2020 5:42 PM Age: 25 years old Clinical indication: Neck pain; Additional info: Right lateral neck swelling/pain TECHNIQUE: Imaging protocol: Computed tomography images of the neck with intravenous contrast. Radiation optimization: All CT scans at this facility use at least one of these dose optimization techniques: automated exposure control; mA and/or kV adjustment per patient size (includes targeted exams where dose is matched to clinical indication); or iterative reconstruction. Contrast material: ISOVUE 370; Contrast volume: 100 ml; Contrast route: INTRAVENOUS (IV); COMPARISON: No relevant prior studies available. FINDINGS: Orbital cavity: The posterior orbits, posterior nasopharynx and parapharyngeal spaces bilaterally show no significant abnormality. Paranasal sinuses: The inferior paranasal air sinuses, middle ear tympanic cavities and mastoid air cells are well-aerated. Nasopharynx: Unremarkable. Oropharynx: The hard palate and soft palate are normal. The faucial tonsils bilaterally appear normal. No evidence of a peritonsillar abscess. The base of tongue, valleculae and epiglottis are normal. Hypopharynx: Unremarkable. Larynx: The supraglottic soft tissues, true vocal cords and larynx are normal. Retropharyngeal space: The hypopharynx and retropharyngeal spaces are normal. No retropharyngeal abscess. Submandibular/Parotid glands: The parotid and record press tender spaces show no significant abnormality. The submandibular and sublingual spaces show no significant abnormality. Thyroid: The thyroid gland is normal, except for small hypodense nodules in both thyroid lobes with the largest measuring 8 mm in diameter on image 57 of series 201 in the left thyroid lobe. No suspicious findings of soft tissue invasion or regional left-sided lymphadenopathy. Lymph nodes: There is moderate cervical lymphadenopathy present in both anterior and posterior cervical triangles with the largest lymph nodes seen in the right side jugulodigastric and jugulo-omohyoid levels. The largest node is seen on image 34 of series 201 and image 28 of series 203, measuring 2.3 x 1.6 cm transversely and 2.6 cm craniocaudally. Trachea: Visualized trachea is unremarkable. Lungs: The bases of both sides of the neck, the supraclavicular areas and the thoracic inlet are normal. The upper mediastinum appears normal. The apices of both lungs are well-aerated. Bones/joints: Unremarkable. No acute fracture. IMPRESSION: 1. There is moderate cervical lymphadenopathy present in both anterior and posterior cervical triangles with the largest lymph nodes seen in the right side jugulodigastric and jugulo-omohyoid levels. The largest node is seen on image 34 of series 201 and image 28 of series 203, measuring 2.3 x 1.6 cm transversely and 2.6 cm craniocaudally. 2. An infection is the most likely cause of the lymphadenopathy although no definite focus of infectious disease is identified on this study. Hodgkin's lymphoma is in the differential diagnosis. 3. The thyroid gland is normal, except for small hypodense nodules in both thyroid lobes with the largest measuring 8 mm in diameter on image 57 of series 201 in the left thyroid lobe. No suspicious findings of soft tissue invasion or regional left-sided lymphadenopathy. No follow-up is recommended. REFERENCE: Amaris Owens., et al. (2015). Managing Incidental Thyroid Nodules Detected on Imaging: White Paper of the ACR Incidental Thyroid Findings Committee. Journal of the [place] [employer], 12(2), 143-150. COMMENTS: Consistent with the [employer]'s Incidental Findings Committee white paper (J Am Rudy Radiol 2015): In patients under 35 years old with an incidental thyroid nodule equal to or greater than [address], MRI or extrathyroidal US, further evaluation with dedicated thyroid US is recommended for patients with normal life expectancy and without comorbidities. For smaller nodules without suspicious features, no further evaluation or follow up is recommended. Electronically signed by: Jayy Everett On 05/06/2020 18:22:21 PM
[2020-05-06] MEDS ORDERED: ONDA4TAB6 PO (18:40)
[2020-05-06 19:08] VITALS: BP 117/72
--- NOTE | 2020-05-08 12:39 | ED PDOC ---
Post-Departure Follow-Up radiology report faxed to [facility] Amparo Lebron MD May 08, 2020 12:38
[2020-05-09 14:11] LABS: EBV AB TO NUCLEAR ANTIGEN <18.0 U/mL (0.0-17.9); EBV VIRAL CAPSID AG IgG <18.0 U/mL (0.0-17.9); EBV VIRAL CAPSID AG IgM <36.0 U/mL (0.0-35.9)
== END 2020-05-06 19:10 | disposition home or self-care (01) ==
LOC: M ED 14:45 → EDBD 14:45 → M ED 19:10
DX: R59.9 Enlarged lymph nodes, unspecified (principal); B34.9 Viral infection, unspecified; F33.9 Major depressive disorder, recurrent, unspecified; F41.9 Anxiety disorder, unspecified
CPT/HCPCS: 70491; 80047; 84439; 84443; 84702; 85025; 86308; 86664; 86665; 87880; 96374; 96375; 99284; J1100; J1885; Q9967

== ENCOUNTER 2020-05-07 20:18 | Emergency (ER) | payer OTHER ==
[~2020-05-07] VITALS: Ht 172.7 cm; Wt 100.0 kg
[~2020-05-07 20:18] MED LIST changes: +ONDA4TAB6 PO
[2020-05-07] MEDS ORDERED: NS 1,000 ML IV SCH (21:45)
[2020-05-07] MEDS ORDERED: AMPICILLIN SOD/SULBACTAM SOD 3 GM in D5W MINI-BAG PLUS 100 ML IV ONE (21:45)
[2020-05-07 21:54] LABS: HEMATOCRIT 39.2 % (36.0-47.0); HEMOGLOBIN 13.1 g/dl (12.0-15.5); MEAN CORPUSCULAR HEMOGLOBIN 29.2 pg (27.0-33.0); MEAN CORPUSCULAR HGB CONC 33.4 g/dl (32.0-36.5); MEAN CORPUSCULAR VOLUME 87.3 fl (80.0-96.0); PLATELET COUNT, AUTOMATED 256 10^3/uL (150-450); RED BLOOD COUNT 4.49 10^6/uL (4.00-5.40); WHITE BLOOD COUNT 12.8 10^3/uL (4.0-10.0)
[2020-05-07 22:34] LABS: BLOOD UREA NITROGEN 10 MG/DL (7-18); CALCIUM LEVEL 8.9 MG/DL (8.5-10.1); CARBON DIOXIDE LEVEL 25 MEQ/L (21-32); CHLORIDE LEVEL 105 MEQ/L (98-107); CREATININE FOR GFR 0.79 MG/DL (0.55-1.30); GLOMERULAR FILTRATION RATE > 60.0 (>60); GLUCOSE, FASTING 102 MG/DL (70-100); POTASSIUM SERUM 4.4 MEQ/L (3.5-5.1); SODIUM LEVEL 138 MEQ/L (136-145)
[2020-05-07] MEDS ORDERED: KETOROLAC 30 MG/ML 1ML VIAL IV ONE (22:45)
[2020-05-07 23:21] VITALS: BP 111/59
== END 2020-05-07 23:27 | disposition short-term general hospital (02) ==
LOC: M ED 20:18
DX: J36 Peritonsillar abscess (principal); R50.9 Fever, unspecified; R22.0 Localized swelling, mass and lump, head
CPT/HCPCS: 80048; 85027; 96361; 96365; 96375; 99284; J1885